=== PATIENT | male | born 1975 | race Caucasian/White ===

== ENCOUNTER 2017-08-01 07:20 | Day surgery (SDC) | payer BC ==
[2017-07-31 12:06] VITALS: BMI 27.3
[~2017-08-01 07:20] MED LIST: Cyclopentolate 1% Opth Drop 2 ML BOT FS SCH; Fluorouracil 100 MG, Enoxaparin Sodium 25 MG, EPINEPHrine 0.3 MG in Ophthalmic Irrigati... FS SCH; Phenylephrine HCl 2.5% Ophth Soln 5 ML BOT FS SCH
[2017-08-01] MEDS ORDERED: Cyclopentolate 1% Opth Drop 2 ML BOT ONE (07:55)
[2017-08-01] MEDS ORDERED: Phenylephrine HCl 2.5% Ophth Soln 5 ML BOT ONE (07:56)
[2017-08-01] MEDS ORDERED: Midazolam HCl 2 mg/2 ml Vial ONE (08:56)
[2017-08-01] MEDS ORDERED: Diprivan 20 ML ONE (08:56)
[2017-08-01] MEDS ORDERED: Ondansetron HCl/PF 4 MG/2 ML Vial ONE ×2 (08:56→09:02)
[2017-08-01] MEDS ORDERED: Fentanyl 100 MCG/2 ML VIAL ONE (08:56)
[2017-08-01] MEDS ORDERED: Propofol 200 MG/20 ML VIAL ONE (09:02)
[2017-08-01] MEDS ORDERED: Lidocaine 2% PF 10 ML AMP (For Epidural Use) ONE (09:02)
[2017-08-01] MEDS ORDERED: Acetaminophen 500 MG TAB ONE ×2 (10:53→10:54)
[2017-08-01] MEDS ORDERED: Acetaminophen 500 MG TAB PO SCH (11:15)
--- NOTE | 2017-08-01 12:23 | OP ---
DATE OF PROCEDURE: 08/01/2017 PREOPERATIVE DIAGNOSIS: Vitreous opacification. POSTOPERATIVE DIAGNOSIS: Vitreous opacification. PROCEDURE: Pars plana vitrectomy, left eye. SURGEON: Dr. Mauro Lazo ANESTHESIA: General endotracheal. COMPLICATIONS: None. PROCEDURE IN DETAIL: The patient was identified in the preoperative holding area. Appropriate info rmed consent for the planned surgical procedure on the left eye had been obtained. The patient was transported to the operative suite where appropriate cardiopulmonary monitoring was established and general endotracheal anesthesia was initiated. Local block was obtained using a combination of lido santino and Marcaine. The eye was prepped and draped in the usual sterile manner for ophthalmic surge ry on the left eye. Lid speculum was placed in the left eye. The 25-gauge trocars were placed in c onjunctiva and sclera supratemporally, inferotemporally, and 20 gauge sclerotomy was created superio r nasally, viscous fluid removal device was inserted into the eye and silicone oil was removed. Vit rectomy was placed in the eye and residual silicone oil bubbles and vitreous were removed. Scleroto mies was closed with 7-0 Vicryl suture supranasally and 6-0 plain gut suture elsewhere. Retrobulbar Kenalog and subconjunctival Ancef were placed. Antibiotic ointment was placed, and the eye was pat ched and shielded. The patient was taken to the postoperative recovery unit in good condition suffe red no immediate perioperative complications. DISCHARGE INSTRUCTIONS: The patient was instructed to keep patch and shield on, avoid lifting and b ending, and follow up in the morning with Dr. Lazo.
== END 2017-08-01 12:15 | disposition home or self-care (01) ==
LOC: SDC 07:20
PROVIDERS: ATTEND Ophthalmology Retina Specialist
PROC: 089530Z Drainage of Left Vitreous with Drainage Device, Percutaneous Approach (ICD-10-PCS; principal; 2017-08-01)
DX: H43.392 Other vitreous opacities, left eye (principal); Z98.890 Other specified postprocedural states; Z79.52 Long term (current) use of systemic steroids; Z79.899 Other long term (current) drug therapy
CPT/HCPCS: J0171; J1650; J2001; J2250; J2405; J2704; J3010; J9190